=== PATIENT | female | born 1950 | race Asian ===

== ENCOUNTER 2018-01-26 23:06 | Inpatient (IN) | payer MEDICAID ==
[~2018-01-26] VITALS: Ht 162.6 cm; Wt 76.2 kg
[2018-01-26 23:06] VITALS: BP 170/89
--- NOTE | 2018-01-26 23:06 | NUR ---
67/F BIBA FROM HOME FOR SOB/DYSPNEA 30 MINS AGO. PER EMS, PT SPO2 ON SCENE WAS 80% ON RA, PT WAS GIVEN ALBUTEROL AND ATROVENT BREATHING TX, AND PLACED ON CPAP, PT'S SPO2 IMPROVED TO 96%. PT ARRIVES TO ER, RT AT BEDSIDE TO CONTINUE CPAP. SPO2 100% ON CPAP, RR 35 EVEN, SHALLOW AND SLIGHTLY LABORED. LUNG SOUNDS CLEAR BL. BS ACTIVE X4, ABD SOFT ROUND NONTENDER. AOX4, GCS 15. ER MD AT BEDSIDE TO EVALUATE PT. HX ASTHMA, HTN, DM
--- NOTE | 2018-01-26 23:07 | NUR ---
PT BIBA ALS. TAKEN TO BED 11. RT AT BEDSIDE
[2018-01-26] MEDS ORDERED: MAG SULF 2000 MG/WATER PREMIX 50 ML IV ONE (23:15)
[2018-01-26] MEDS ORDERED: ALBUTEROL 0.083% 2.5 MG/3 ML NEBU INH ONE (23:15)
[2018-01-26] MEDS ORDERED: methylPREDNISolone SS 125 MG/2 ML VIAL IVP ONE (23:15)
[2018-01-26] MEDS ORDERED: IPRATROPIUM 0.02% 0.5 MG/2.5 ML NEBU INH ONE (23:15)
--- NOTE | 2018-01-26 23:30 | NUR ---
PT'S AT BEDSIDE
[2018-01-26 23:56] LABS: BASOPHILS # (AUTO) 0.1 K/uL (0.00-0.22); BASOPHILS % (AUTO) 0.7 % (0.0-2.0); EOSINOPHILS # (AUTO) 0.6 K/uL (0-0.4); EOSINOPHILS % (AUTO) 4.6 % (0.0-4.0); HEMATOCRIT 38.7 % (36-48); HEMOGLOBIN 12.2 g/dL (12.0-16.0); LYMPHOCYTES % (AUTO) 22.5 % (20.5-51.1); MEAN CORPUSCULAR HEMOGLOBIN 30 pg (27-31); MEAN CORPUSCULAR HGB CONC 32 g/dL (33-37); MEAN CORPUSCULAR VOLUME 93.9 fL (80-94); MONOCYTES % (AUTO) 7.5 % (1.7-9.3); NEUTROPHILS # (AUTO) 8.5 K/uL (1.8-7.7); NEUTROPHILS % (AUTO) 64.7 % (42.2-75.2); PLATELET COUNT (AUTO) 257 K/uL (140-450); RED BLOOD CELL COUNT(AUTO) 4.12 MIL/uL (4.20-5.40); RED CELL DISTRIBUTION WIDTH 14.5 % (11.6-13.7); WHITE BLOOD COUNT (AUTO) 13.2 K/uL (4.8-10.8)
[2018-01-27 00:15] LABS: ANION GAP 12.4 (8-16); CARBON DIOXIDE 26.4 mmol/L (21-32); CREATININE 1.9 mg/dL (0.6-1.3); POTASSIUM 4.8 mmol/L (3.5-5.1)
[2018-01-27 00:20] LABS: ALBUMIN 2.7 g/dL (3.4-5.0); TOTAL BILIRUBIN 0.3 mg/dL (0.0-1.0)
[2018-01-27] MEDS ORDERED: AZITHROMYCIN 500 MG in DEXTROSE 5% 250 ML IV ONE (00:40)
[2018-01-27] MEDS ORDERED: cefTRIAXone 1,000 MG in DEXT 5% MINI-BAG PLUS 50 ML IV ONE (00:40)
[2018-01-27] MEDS ORDERED: cefTRIAXone 1,000 MG VIAL ONE (00:57)
[2018-01-27] MEDS ORDERED: AZITHROMYCIN 500 MG INJ VIAL IV ONE (00:58)
[2018-01-27] MEDS: NACL 0.9% 1,000 ML IV SCH (02:14)
[2018-01-27] MEDS ORDERED: ONDANSETRON 4 MG/2 ML VIAL IM/IVP PRN (02:15)
[2018-01-27] MEDS ORDERED: DOCUSATE SODIUM 100 MG GELCAP PO PRN (02:15)
--- NOTE | 2018-01-27 02:27 | NUR ---
Dr. Lowe evaluating patient at bedside.
[2018-01-27] MEDS ORDERED: ALBUTEROL SULFATE/IPRATROPIU 3 ML SOL IH PRN (02:50)
[2018-01-27 02:52] VITALS: BP 153/74
[2018-01-27] MEDS ORDERED: hePARIN / DEXT 5% PREMIX 250 ML IV SCH (02:55)
[2018-01-27] MEDS ORDERED: HEPARIN PER PHARMACY MC PRN (02:55)
--- NOTE | 2018-01-27 02:55 | NUR ---
Patient will be admitted to care of [facility]. Admitted to TELE. Will go to room 110A. Belongings list completed. Report to REED ESCALANTE.
--- NOTE | 2018-01-27 02:55 | NUR ---
Admitted from ER TO TELEMETRY UNIT , with chief complaint of SOB, CHEST PAIN , 67 y/o ,Female, Cooperative, AWAKE, A/OX4. NOTED BILATERAL WHEEZES ON LUNG AUSCULTATION. APPEARS WEAK, WITH SOB. 02 SAT - 93-94% ON 2 LITERS VIA N/C. ABLE TO AMBULATE BY HERSELF, CONTINENT. HEAD TO TOE ASSESSMENT DONE WITH MATEO GLEASON, SKIN INTACT. PLAN OF CARE FOR THE SHIFT DISCUSSED WITH ALSO, VERBALIZED UNDERSTANDING. WITH CHEST PAIN 2/, WILL MEDICATE ORDERED. REPOSITIONED IN BED FOR COMFORT. oriented to call light, bed, phone,television, bathroom, smoking policy, visiting hours, procedures, ID bracelet on. Belongings list checked.
[2018-01-27] MEDS ORDERED: NITROGLYCERIN 0.4 MG TAB SL PRN (03:00)
[2018-01-27] MEDS ORDERED: ALBUTEROL SULFATE/IPRATROPIU 3 ML SOL IH ONE (03:05)
[2018-01-27] MEDS ORDERED: MORPHINE SULFATE 4 MG/ML SYR IVP PRN ×2 (03:05→16:10)
--- NOTE | 2018-01-27 03:05 | NUR ---
RT CAME AND GIVE BREATHING TREATMENT, RELIEF NOTED. DECREASED SOB. VERBALIZED DECREASED IN PAIN IN THE CHEST.
[2018-01-27] MEDS ORDERED: FUROSEMIDE 40 MG/4 ML VIAL IVP SCH (03:30)
--- NOTE | 2018-01-27 03:30 | NUR ---
TAKEN TO RADIOLOGY VIA BED FOR CT OF HEAD.
[2018-01-27 03:35] LABS: CHOL/HDL RATIO 3.7 (1-4.5); FREE T4 (FREE THYROXINE) 1.14 ng/dL (0.76-1.46); MAGNESIUM 2.1 mg/dL (1.8-2.4); PHOSPHORUS 4.1 mg/dL (2.5-4.9); THYROID STIMULATING HORMONE 2.66 uIU/mL (0.34-3.74)
--- NOTE | 2018-01-27 04:00 | NUR ---
RESULT OF CT OF HEAD, NO INTRACRANIAL HEMORRHAGE.
[2018-01-27] MEDS ORDERED: METF1000 PO (04:19)
[2018-01-27] MEDS ORDERED: ATOR10TA51 PO (04:19)
[2018-01-27] MEDS ORDERED: GLIP5TER PO (04:19)
[2018-01-27] MEDS ORDERED: ASPI81CT89 PO (04:19)
[2018-01-27] MEDS ORDERED: AMLO10TA PO (04:19)
[2018-01-27] MEDS ORDERED: FURO-572 PO (04:19)
[2018-01-27] MEDS: hePARIN / DEXT 5% PREMIX 250 ML IV SCH ×3 (04:44→19:42)
--- NOTE | 2018-01-27 04:44 | NUR ---
HEPARIN DRIP AT 7.6 ML/HR STARTED BY MATEO GLEASON.
[2018-01-27] MEDS ORDERED: methylPREDNISolone SS 125 MG/2 ML VIAL IVP SCH (05:30)
[2018-01-27] MEDS ORDERED: METOPROLOL 25 MG TAB PO SCH ×2 (05:30→09:00)
[2018-01-27] MEDS ORDERED: PIPERACILLIN/TAZOBACTAM 3.375 GM VIAL IV ONE (05:36)
[2018-01-27] MEDS ORDERED: methylPREDNISolone SS 125 MG/2 ML VIAL ONE (05:37)
[2018-01-27] MEDS: PIPER/TAZO 3.375GM/D5W PREMIX 50 ML IV SCH ×3 (05:48→20:47)
--- NOTE | 2018-01-27 06:30 | NUR ---
RESTING COMFORTABLY IN BED, NO MORE SOB. AT THE BEDSIDE. TOLERATED ALL MEDICATIONS GIVEN. WILL ENDORSED TO AM NURSE FOR CONTINUITY OF CARE.
[2018-01-27] MEDS ORDERED: glipiZIDE ER 5 MG TABER PO SCH (07:00)
--- NOTE | 2018-01-27 07:25 | NUR ---
ENDORSED TO Deborah WHITE FOR CONTINUITY OF CARE.
--- NOTE | 2018-01-27 07:30 | NUR ---
RECEIVED PATIENT FROM LITIGATION ASSISTANT RN ON BEDSIDE. PATIENT IS ALERT AND ORIENTED ON NC 2L/MIN. NO SOB OR PAIN AT THIS TIME. PATIENT ON HEP DRIP INFUSING AT 7.6ML/HR ON R AC 18G. PATIEN IS LYING COMFORTABLY ON THE BED WITH CALL LIGHT WITHIN REACH. PATIENT'S IS BY HER BEDSIDE.
[2018-01-27 08:00] VITALS: BP 148/75
[2018-01-27 08:17] LABS: BASOPHILS % (AUTO) 0.2 % (0.0-2.0); EOSINOPHILS % (AUTO) 0.1 % (0.0-4.0); HEMATOCRIT 39.2 % (36-48); HEMOGLOBIN 12.4 g/dL (12.0-16.0); LYMPHOCYTES # (AUTO) 1.2 K/uL (2.5-16.5); LYMPHOCYTES % (AUTO) 10.3 % (20.5-51.1); MEAN CORPUSCULAR HEMOGLOBIN 30 pg (27-31); MEAN CORPUSCULAR HGB CONC 32 g/dL (33-37); MEAN CORPUSCULAR VOLUME 93.7 fL (80-94); MONOCYTES # (AUTO) 0.1 K/uL (0.8-1.0); MONOCYTES % (AUTO) 0.7 % (1.7-9.3); NEUTROPHILS # (AUTO) 10.1 K/uL (1.8-7.7); NEUTROPHILS % (AUTO) 88.7 % (42.2-75.2); PLATELET COUNT (AUTO) 255 K/uL (140-450); RED BLOOD CELL COUNT(AUTO) 4.19 MIL/uL (4.20-5.40); RED CELL DISTRIBUTION WIDTH 14.6 % (11.6-13.7); WHITE BLOOD COUNT (AUTO) 11.4 K/uL (4.8-10.8)
--- NOTE | 2018-01-27 08:19 | NUR ---
PATIENT HAS BEEN SCREENED AND CATEGORIZED HIGH NUTRITION RISK. PATIENT WILL BE SEEN WITHIN 1-2 DAYS OF ADMISSION. 01/27/18-01/28/[address]
[2018-01-27] MEDS: ALBUTEROL SULFATE/IPRATROPIU 3 ML SOL IH SCH ×3 (08:39→19:37)
[2018-01-27] MEDS ORDERED: ECOTRIN 81 MG TABEC PO SCH (09:00)
[2018-01-27] MEDS ORDERED: LISINOPRIL 5 MG TAB PO SCH (09:00)
[2018-01-27 09:09] LABS: ANION GAP 13.5 (8-16); CARBON DIOXIDE 25.6 mmol/L (21-32); CREATININE 2.1 mg/dL (0.6-1.3)
[2018-01-27 09:12] LABS: MAGNESIUM 2.4 mg/dL (1.8-2.4); PHOSPHORUS 4.8 mg/dL (2.5-4.9)
[2018-01-27 09:15] LABS: POTASSIUM 6.1 mmol/L (3.5-5.1)
[2018-01-27] MEDS: amLODIPine 5 MG TAB PO SCH (09:16)
[2018-01-27] MEDS: ASPIRIN 81 MG TAB.CHEW PO SCH (09:17)
[2018-01-27] MEDS: ATORVASTATIN 20 MG TAB PO SCH (09:17)
--- NOTE | 2018-01-27 09:24 | NUR ---
CRITICAL VALUE RECEIVED BY LAB: PTT 52.9. NO CHANGE IN HEPARIN DRIP RATE.
--- NOTE | 2018-01-27 09:46 | NUR ---
CRITICAL VALUES RECEIVED BY LAB TROPONIN 0.718 BUN [address] BURROWS
[2018-01-27 12:15] VITALS: BP 146/76
--- NOTE | 2018-01-27 12:30 | NUR ---
PATIENT IS IN COMFORTABLE CONDITION. PATIENT STATED NO PAIN OR DISTRESS AT THIS TIME. PATIENT'S AND SON ARE BY HER BEDSIDE. WILL CONTINUE TO MONITOR HER FOR PAIN
--- NOTE | 2018-01-27 15:00 | NUR ---
PATIENT IS SITTING ON THE BED AND STATED THAT SHE IS NOT IN ANY PAIN AT THIS TIME. BY HER BEDSIDE. BED IS AT THE LOWEST POSITION WITH THE CALL LIGHT WITHIN REACH.
--- NOTE | 2018-01-27 15:38 | NUR ---
PATIENT BEING EVALUATED BY DR TALLEY. FAMILY MEMBERS AT BEDSIDE
[2018-01-27] MEDS: ACETAMINOPHEN 325 MG TAB PO PRN (15:53)
[2018-01-27 16:00] VITALS: BP 132/90
[2018-01-27] MEDS ORDERED: ATORVASTATIN 20 MG TAB PO SCH (17:00)
[2018-01-27] MEDS ORDERED: GABAPENTIN 100 MG CAP PO SCH (17:00)
[2018-01-27] MEDS ORDERED: SODIUM POLYSTYRENE 15 GM/60 ML UDBTL PO SCH (17:30)
[2018-01-27] MEDS ORDERED: DEXTROSE 50% 50 ML SYR IVP SCH (18:00)
[2018-01-27] MEDS ORDERED: INSULIN REGULAR, HUMAN 100 UNIT/ML VIAL IVP SCH (18:00)
--- NOTE | 2018-01-27 18:00 | NUR ---
CRITICAL VALUE TROP 1.[address] BURROWS
--- NOTE | 2018-01-27 19:30 | NUR ---
PATIENT REPORT GIVEN AT BEDSIDE. PATIENT ENDORSED IN STABLE CONDITION
[2018-01-27 20:00] VITALS: BP 143/69
[2018-01-27] MEDS: METOPROLOL 50 MG TAB PO SCH (20:47)
--- NOTE | 2018-01-27 21:00 | NUR ---
PT SITTING ON SIDE OF BED. NO C/O ANY PAIN NOTED.
[2018-01-27 21:04] LABS: BARBITURATE, URINE NEG. ng/ml (NEG <=200); BENZODIAZEPINE, URINE NEG. ng/mL (NEG <=200); CANNABINOID, URINE NEG. ng/mL (NEG <=50); COCAINE, URINE NEG. ng/mL (NEG <=300); OPIATE, URINE NEG. ng/mL (NEG <=2000); PHENCYCLIDINE SCREEN,URINE NEG. ng/mL (NEG <=25)
[2018-01-27 21:28] LABS: APPEARANCE,URINE CLEAR (CLEAR); COLOR,URINE STRAW (YELLOW)
[2018-01-27 21:29] LABS: BILIRUBIN,URINE NEGATIVE (NEGATIVE); BLOOD, URINE NEGATIVE (NEGATIVE); LEUKOCYTE ESTERASE ,URINE NEGATIVE (NEGATIVE); NITRITE, URINE NEGATIVE (NEGATIVE); UGLUCOSE NEGATIVE (NEGATIVE)
--- NOTE | 2018-01-27 22:30 | NUR ---
PT ASLEEP. NO S/S FO ANY DISCOMFORT NOTED. WILL CONTINUE TO MONITOR.
--- NOTE | 2018-01-28 00:05 | NUR ---
AWAKE. VITAL SIGNS TAKE. STABLE. NO C/O ANY DISCOMFORT /PAIN NOTED. WILL CONTINUE TO MONITOR.
[2018-01-28 00:07] VITALS: BP 132/60
--- NOTE | 2018-01-28 01:20 | NUR ---
AWAKE. ASSISTED UP TO THE BATHROOM. VOIDED.
[2018-01-28] MEDS: ALBUTEROL SULFATE/IPRATROPIU 3 ML SOL IH SCH ×4 (01:40→18:51)
[2018-01-28] MEDS: NACL 0.9% 1,000 ML IV SCH (02:14)
[2018-01-28] MEDS: hePARIN / DEXT 5% PREMIX 250 ML IV SCH ×2 (03:13→08:42)
--- NOTE | 2018-01-28 03:13 | NUR ---
LATEST PTT RESULT 42.3. HEPARIN DRIP PROTOCOL FOLLOWED. NEXT PTT WILL BE AT 0913 THIS AM. WILL CONTINUE TO MONITOR PT.
[2018-01-28] MEDS: PIPER/TAZO 3.375GM/D5W PREMIX 50 ML IV SCH ×3 (04:29→20:13)
[2018-01-28 04:35] VITALS: BP 123/66
[2018-01-28] MEDS: HYDROcodone/APAP 7.5/325 MG 1 TAB PO PRN (04:38)
--- NOTE | 2018-01-28 04:38 | NUR ---
C.O HEADACHE. MEDICATED WITH NORCO PO. WILL CONTINUE TO MONITOR.
--- NOTE | 2018-01-28 05:38 | NUR ---
PT IS ASLEEP. NO S/S OF PAIN NOTED.
[2018-01-28] MEDS: PANTOPRAZOLE 40 MG TABEC PO SCH (05:41)
[2018-01-28 06:17] LABS: T4 (THYROXINE) 7.8 ug/dL (4.5-12.0)
[2018-01-28 07:08] LABS: HEMATOCRIT 33.1 % (36-48); HEMOGLOBIN 10.5 g/dL (12.0-16.0); LYMPHOCYTES # (AUTO) 1.4 K/uL (2.5-16.5); LYMPHOCYTES % (AUTO) 6.6 % (20.5-51.1); MEAN CORPUSCULAR HEMOGLOBIN 30 pg (27-31); MEAN CORPUSCULAR HGB CONC 32 g/dL (33-37); MONOCYTES # (AUTO) 1.1 K/uL (0.8-1.0); MONOCYTES % (AUTO) 5.1 % (1.7-9.3); NEUTROPHILS # (AUTO) 19.3 K/uL (1.8-7.7); NEUTROPHILS % (AUTO) 88.3 % (42.2-75.2); PLATELET COUNT (AUTO) 226 K/uL (140-450); RED BLOOD CELL COUNT(AUTO) 3.52 MIL/uL (4.20-5.40); RED CELL DISTRIBUTION WIDTH 14.9 % (11.6-13.7); WHITE BLOOD COUNT (AUTO) 21.9 K/uL (4.8-10.8)
--- NOTE | 2018-01-28 07:20 | NUR ---
ENDORSED PT IN STABLE CONDITION TO AM NURS FOR CONTINUITY OF CARE.
--- NOTE | 2018-01-28 07:25 | NUR ---
PT REPORT RECEIVED FROM INFORMATION SYSTEMS COORDINATOR NURSE AT BEDSIDE. PT IS AWAKE AND ALERT, AT BEDSIDE. PT IS ON 2L O2 NC. PT HAS R WRIST 22 GAUGE IV SITE, AND A R AC 18 GAUGE IV SITE. NS INFUSING AT 10 ML/HR TKO ON R AC. HEPARIN DRIPPING AT 10.2 ML/HR AT THIS TIME ON R WRIST. CONTINUING TO MONITOR PTT. SKIN INTACT. NO ACUTE DISTRESS NOTED AT THIS TIME, NO C/O CHEST PAIN OR SOB AT THIS TIME. WILL CONTINUE TO MONITOR. CALL LIGHT WITHIN REACH. FALL PRECAUTIONS IN PLACE.
[2018-01-28 07:28] LABS: ANION GAP 11.8 (8-16); CARBON DIOXIDE 27.1 mmol/L (21-32); CREATININE 2.3 mg/dL (0.6-1.3); POTASSIUM 4.9 mmol/L (3.5-5.1)
[2018-01-28 07:38] LABS: MAGNESIUM 2.3 mg/dL (1.8-2.4); PHOSPHORUS 5.4 mg/dL (2.5-4.9)
[2018-01-28] MEDS ORDERED: FUROSEMIDE 20 MG TAB PO SCH (09:00)
[2018-01-28] MEDS: ASPIRIN 81 MG TAB.CHEW PO SCH (09:33)
[2018-01-28] MEDS: ATORVASTATIN 20 MG TAB PO SCH (09:33)
[2018-01-28] MEDS: amLODIPine 5 MG TAB PO SCH (09:33)
[2018-01-28] MEDS: METOPROLOL 50 MG TAB PO SCH ×2 (09:34→20:13)
[2018-01-28] MEDS: GABAPENTIN 100 MG CAP PO SCH ×3 (09:34→17:59)
[2018-01-28 10:49] LABS: CHLORIDE,URINE RANDOM 54 mmol/L (110-250); CREATININE,URINE RANDOM 83 mg/dL (30-125); URINE SODIUM, RANDOM 33 mmol/l (40-220)
[2018-01-28 12:00] VITALS: BP 136/69
--- NOTE | 2018-01-28 13:00 | NUR ---
01/28/18 RD FOLLOW UP COMPLETED PLEASE REFER TO NUTRITION ASSESSMENT UNDER CARE ACTIVITY FOR ESTIMATED NUTRITIONAL NEEDS. CONTINUE RENAL, CARDIAC, AND CCHO 60 GM DIET TOLERATED 2. DIETITIAN PROVIDED RENAL AND DIABETIC NUTRITIONAL EDUCATION 3. RD TO FOLLOW-UP 3-5 DAYS, MODERATE RISK JERRI MENDOZA RD
--- NOTE | 2018-01-28 14:20 | NUR ---
PT ALERT AND AWAKE IN BED, NO S/S OF DISTRESS, NO C/O PAIN. PT ON 2L O2 NC. VS STABLE. AND SON AT BEDSIDE. CALL LIGHT WITHIN REACH. CONTINUING TO MONITOR.
[2018-01-28 16:00] VITALS: BP 145/69
[2018-01-28] MEDS: FUROSEMIDE 40 MG TAB PO SCH (18:00)
--- NOTE | 2018-01-28 18:50 | NUR ---
NOTIFIED OF PT'S POSITIVE MRSA NARES.
--- NOTE | 2018-01-28 19:35 | NUR ---
RECEIVED BEDSIDE REPORT FROM MATEO ORTEGA. PATIENT ON CONTACT PRECAUTIONS FOR MRSA OF NARES, ON 2 L VIA NC, AT BEDSIDE, NO SIGNS OF ACUTE DISTRESS, IV IN RIGHT WRIST 22 G INFUSING HEPARIN ACCORDING TO PROTOCOL FOR APTT OF 53.1. IV IN RIGHT AC 18 G INFUSING NS AT 10 ML/HR. BOTH DRESSINGS INTACT. NOTED EDEMA IN BOTH LOWER EXTREMITIES. V/S TAKEN ALL WITHIN BASELINE, CALL LIGHT WITHIN REACH, BED ALARM ON WILL CONTINUE TO MONITOR.
--- NOTE | 2018-01-28 19:35 | NUR ---
PT REPORT GIVEN AT BEDSIDE TO NIGHTSHIFT NURSE. PT ENDORSED IN STABLE CONDITION.
[2018-01-28 20:00] VITALS: BP 126/66
[2018-01-28 21:05] LABS: URINE PROTEIN QUANT RANDOM 148.8 mg/dL (15-45)
--- NOTE | 2018-01-28 21:14 | NUR ---
CALL FROM LAB, SPOKE WITH RAFFY, CRITICAL VALUE FOR PTT 68.2, DOCTORS AWARE, NO CHANGE IN HEPARIN PROTOCOL.
--- NOTE | 2018-01-28 22:00 | NUR ---
DUE MEDICATIONS GIVEN, PATIENT TOLERATED WELL, CALL LIGHT WITHIN REACH, WILL CONTINUE TO MONITOR.
[2018-01-29] VITALS: BP 123/61
--- NOTE | 2018-01-29 | NUR ---
V/S TAKEN ALL WITHIN BASELINE, PATIENT AMBULATED TO RESTROOM, ASSISTANCE NEEDED, HELPED BACK INTO BED.
[2018-01-29] MEDS: ALBUTEROL SULFATE/IPRATROPIU 3 ML SOL IH SCH ×4 (01:25→19:41)
--- NOTE | 2018-01-29 02:00 | NUR ---
PATIENT RESTING IN BED, ON 2 L NC, NO SIGNS OF ACUTE DISTRESS, CALL LIGHT WITHIN REACH, WILL CONTINUE TO MONITOR.
[2018-01-29] MEDS: NACL 0.9% 1,000 ML IV SCH (02:14)
[2018-01-29 04:00] VITALS: BP 130/80
--- NOTE | 2018-01-29 04:00 | NUR ---
V/S TAKEN NOTED BP 130/80 HR 78, DENIES PAIN , CALL LIGHT WITHIN REACH, WILL CONTINUE TO MONITOR.
[2018-01-29] MEDS: PIPER/TAZO 3.375GM/D5W PREMIX 50 ML IV SCH ×3 (06:19→20:54)
[2018-01-29] MEDS: PANTOPRAZOLE 40 MG TABEC PO SCH (06:19)
--- NOTE | 2018-01-29 07:10 | NUR ---
ENDORSED PATIENT TO DAY SHIFT NURSE, PATIENT STABLE.
--- NOTE | 2018-01-29 07:30 | NUR ---
RECEIVED PT'S REPORT FROM PROJECT COORDINATOR RN NURSE AT BEDSIDE. PT IS AAOX4, ON CONTACT PRECAUTIONS FOR MRSA OF NARES, ON 2 L O2 VIA NC, AT BEDSIDE, NO S/S OF ACUTE DISTRESS NOTED, IV TO RIGHT WRIST 22 G INFUSING HEPARIN AT 890 UNITS PER HR. IV TO RIGHT AC 18 G INFUSING NS AT 10 ML/HR, ASYMPTOMATIC. CALL LIGHT WITHIN REACH, BED IN LOWEST POSITION, BED ALARM ON, WILL CONTINUE TO MONITOR.
[2018-01-29 08:00] VITALS: BP 128/67
[2018-01-29] MEDS ORDERED: CALCIUM ACETATE 667 MG TAB PO SCH (08:00)
[2018-01-29] MEDS ORDERED: MUPIROCIN 2% OINT 22 GM TUBE TP SCH (09:00)
[2018-01-29] MEDS: amLODIPine 5 MG TAB PO SCH (09:00)
[2018-01-29] MEDS: ASPIRIN 81 MG TAB.CHEW PO SCH (09:01)
[2018-01-29] MEDS: FUROSEMIDE 40 MG TAB PO SCH ×2 (09:01→16:40)
[2018-01-29] MEDS: METOPROLOL 50 MG TAB PO SCH ×2 (09:01→20:55)
[2018-01-29] MEDS: ATORVASTATIN 20 MG TAB PO SCH (09:02)
[2018-01-29] MEDS: GABAPENTIN 300 MG CAP PO SCH ×3 (09:02→16:40)
[2018-01-29 09:04] LABS: BASOPHILS # (AUTO) 0.1 K/uL (0.00-0.22); BASOPHILS % (AUTO) 0.6 % (0.0-2.0); EOSINOPHILS % (AUTO) 0.1 % (0.0-4.0); HEMATOCRIT 34.1 % (36-48); HEMOGLOBIN 10.7 g/dL (12.0-16.0); LYMPHOCYTES # (AUTO) 2.5 K/uL (2.5-16.5); LYMPHOCYTES % (AUTO) 14.4 % (20.5-51.1); MEAN CORPUSCULAR HEMOGLOBIN 30 pg (27-31); MEAN CORPUSCULAR HGB CONC 31 g/dL (33-37); MEAN CORPUSCULAR VOLUME 94.5 fL (80-94); MONOCYTES # (AUTO) 1.3 K/uL (0.8-1.0); MONOCYTES % (AUTO) 7.5 % (1.7-9.3); NEUTROPHILS # (AUTO) 13.2 K/uL (1.8-7.7); NEUTROPHILS % (AUTO) 77.4 % (42.2-75.2); PLATELET COUNT (AUTO) 223 K/uL (140-450); RED BLOOD CELL COUNT(AUTO) 3.61 MIL/uL (4.20-5.40); RED CELL DISTRIBUTION WIDTH 14.8 % (11.6-13.7); WHITE BLOOD COUNT (AUTO) 17.1 K/uL (4.8-10.8)
--- NOTE | 2018-01-29 09:40 | NUR ---
PT ACCIDENTALLY PULLED OUT HER IV AT RIGHT AC. BLEEDING STOPPED, PRESSURE APPLIED. IV TIP INTACT.
--- NOTE | 2018-01-29 09:41 | NUR ---
CALLED DR TATUM, REPORTED TROP 3.054
--- NOTE | 2018-01-29 09:43 | NUR ---
PT DENIES ANY CHEST PAIN AT THIS TIME, NO S/S OF ACUTE DISTRESS ON 2L O2 NC.
--- NOTE | 2018-01-29 10:06 | NUR ---
NEW IV INSERTED, RIGHT FA, 22G. PT TOLERATED WELL.
[2018-01-29] MEDS: CHLORHEXADINE GLUC 2% CLOTH TP SCH (11:10)
--- NOTE | 2018-01-29 11:25 | NUR ---
DR HANDY HAS SEEN THE PT. CONTINUE HEPARIN DRIP PER DR HANDY.
[2018-01-29] MEDS: hePARIN / DEXT 5% PREMIX 250 ML IV SCH ×2 (11:47→22:43)
[2018-01-29 12:00] VITALS: BP 145/52
--- NOTE | 2018-01-29 15:49 | NUR ---
PT DENIES CHEST PAIN AT THIS TIME. NO S/S OF DISTRESS NOTED. ON 2 L O2 NC. HEPARIN DRIP INFUSING.
[2018-01-29 16:00] VITALS: BP 127/69
[2018-01-29 16:36] LABS: MAGNESIUM 2.2 mg/dL (1.8-2.4); PHOSPHORUS 6.1 mg/dL (2.5-4.9)
[2018-01-29 16:50] LABS: ANION GAP 15.6 (8-16); CREATININE 2.7 mg/dL (0.6-1.3); POTASSIUM 4.6 mmol/L (3.5-5.1)
--- NOTE | 2018-01-29 18:30 | NUR ---
PT C/O RIGHT AC PAINFUL BECAUSE TOO MANY BLOOD DRAWS. APPLIED LOTION AND COLD COMPRESS.
--- NOTE | 2018-01-29 19:25 | NUR ---
ENDORSED PT TO HARNESS INSPECTOR RN. PT IN STABLE CONDITION.
[2018-01-29 19:47] VITALS: BP 134/69
--- NOTE | 2018-01-29 21:40 | NUR ---
LAB CALLED FOR PTT RESULT 90. HEPARIN DRIP PUT ON HOLD FOR 1 HOUR PER PROTOCOL THEN WILL RESTART WITH DECREASE RATE OF 190 UNITS/HR.
--- NOTE | 2018-01-29 22:55 | NUR ---
PT SLEEPING WELL. NO S/S OF ANY DISCOMFORT NOR PAIN AND SOB NOTED.
[2018-01-30] MEDS: ALBUTEROL SULFATE/IPRATROPIU 3 ML SOL IH SCH ×4 (00:15→19:55)
[2018-01-30 00:20] VITALS: BP 127/64
--- NOTE | 2018-01-30 00:30 | NUR ---
PT GIVEN A BREATHING TREATMENT SCHEDULED. VITAL SIGNS STABLE.
--- NOTE | 2018-01-30 02:00 | NUR ---
ASLEEP. NO S/S OF ANY DISCOMFORT NOTED.
[2018-01-30] MEDS: NACL 0.9% 1,000 ML IV SCH (02:14)
--- NOTE | 2018-01-30 04:00 | NUR ---
UP TO BSC WITH IN ATTENDANCE. NO SOB NOTED.
[2018-01-30] MEDS: PIPER/TAZO 3.375GM/D5W PREMIX 50 ML IV SCH ×3 (04:37→20:38)
[2018-01-30 04:45] VITALS: BP 150/71
--- NOTE | 2018-01-30 04:45 | NUR ---
BLOOD WAS DRAWN FOR PTT AND OTHER LABS. WILL FOLLOW UP RESULTS.
[2018-01-30] MEDS: PANTOPRAZOLE 40 MG TABEC PO SCH (06:00)
[2018-01-30 06:54] LABS: BASOPHILS # (AUTO) 0.1 K/uL (0.00-0.22); BASOPHILS % (AUTO) 0.3 % (0.0-2.0); EOSINOPHILS # (AUTO) 0.5 K/uL (0-0.4); EOSINOPHILS % (AUTO) 3.1 % (0.0-4.0); HEMATOCRIT 35.7 % (36-48); HEMOGLOBIN 11.3 g/dL (12.0-16.0); LYMPHOCYTES # (AUTO) 4.3 K/uL (2.5-16.5); LYMPHOCYTES % (AUTO) 28.6 % (20.5-51.1); MEAN CORPUSCULAR HEMOGLOBIN 30 pg (27-31); MEAN CORPUSCULAR HGB CONC 32 g/dL (33-37); MEAN CORPUSCULAR VOLUME 94.3 fL (80-94); MONOCYTES # (AUTO) 1.5 K/uL (0.8-1.0); MONOCYTES % (AUTO) 9.8 % (1.7-9.3); NEUTROPHILS # (AUTO) 8.7 K/uL (1.8-7.7); NEUTROPHILS % (AUTO) 58.2 % (42.2-75.2); PLATELET COUNT (AUTO) 236 K/uL (140-450); RED BLOOD CELL COUNT(AUTO) 3.78 MIL/uL (4.20-5.40); RED CELL DISTRIBUTION WIDTH 14.9 % (11.6-13.7); WHITE BLOOD COUNT (AUTO) 14.9 K/uL (4.8-10.8)
[2018-01-30] MEDS: HYDROcodone/APAP 7.5/325 MG 1 TAB PO PRN (07:07)
[2018-01-30] MEDS: hePARIN / DEXT 5% PREMIX 250 ML IV SCH ×3 (07:16→22:17)
--- NOTE | 2018-01-30 07:16 | NUR ---
LATEST PTT73.3 HEPARIN DRIP PROTOCOL FOLLOWED DECREASED DRIP BY 130 UNITS/HR. NEXT PTT ORDERED.
--- NOTE | 2018-01-30 07:25 | NUR ---
ENDORSED PT IN STABLE CONDITION TO AM NURSE FOR CONTINUITY OF CARE.
--- NOTE | 2018-01-30 07:26 | NUR ---
RECEIVED BEDSIDE REPORT FROM WOOD HANDLER NURSE. PATIENT IS AWAKE, ALERT AND ORIENTEDX4. NO SIGNS OF DISTRESS ON 2L NC. BEDSIDE COMMODE AT BEDSIDE, AMBULATE W ASSIST D/T WEAKNESS. FALL RISK PROTOCOL IN PLACE. SKIN IS INTACT. IV ON R WRIST 22G INFUSING HEPARIN AT 570UNITS/HR. R FA 22G INFUSING NS AT 10 TKO. IVS ARE CLEAN, DRY AND INTACT. TELE MONITOR IN PLACE. AT BEDSIDE. WILL CONTINUE TO MONITOR THE PATIENT. BED IN LOW POSITION
[2018-01-30 07:34] LABS: MAGNESIUM 2.2 mg/dL (1.8-2.4); PHOSPHORUS 6.2 mg/dL (2.5-4.9)
[2018-01-30 08:00] VITALS: BP 122/50
[2018-01-30 08:08] LABS: ANION GAP 12.9 (8-16); CARBON DIOXIDE 30.4 mmol/L (21-32); CREATININE 2.9 mg/dL (0.6-1.3); POTASSIUM 4.3 mmol/L (3.5-5.1)
[2018-01-30] MEDS: ASPIRIN 81 MG TAB.CHEW PO SCH (09:23)
[2018-01-30] MEDS: FUROSEMIDE 40 MG TAB PO SCH ×2 (09:23→16:52)
[2018-01-30] MEDS: amLODIPine 5 MG TAB PO SCH (09:23)
[2018-01-30] MEDS: METOPROLOL 50 MG TAB PO SCH ×2 (09:24→20:39)
[2018-01-30] MEDS: GABAPENTIN 300 MG CAP PO SCH ×3 (09:24→16:52)
[2018-01-30] MEDS: ATORVASTATIN 20 MG TAB PO SCH (09:24)
[2018-01-30] MEDS: MUPIROCIN CA NASAL 2% 1GM TUBE NS SCH (09:25)
[2018-01-30] MEDS: CHLORHEXADINE GLUC 2% CLOTH TP SCH (09:25)
--- NOTE | 2018-01-30 09:30 | NUR ---
ADMINISTERED MEDS. PATIENT TOLERATED WELL. WILL CONTINUE TO MONITOR THE PATIENT. AT BEDSIDE
--- NOTE | 2018-01-30 11:03 | NUR ---
PATIENT LAYING IN BED. NO SIGNS OF DISTRESS. AT BEDSIDE. WILL CONTINUE TO MONITOR THE PATIENT
[2018-01-30 12:00] VITALS: BP 148/75
--- NOTE | 2018-01-30 13:34 | NUR ---
ADMINISTERED MEDS. PATIENT TOLERATED WELL. BED IN LOW POSITION. CALL LIGHT WITHIN REACH. PATIENT EATING LUNCH. AT BEDSIDE. WILL CONTINUE TO MONITOR
--- NOTE | 2018-01-30 14:21 | NUR ---
APTT IS 39.2. HEPARIN BOLUS OF 1,900 UNITS PER PROTOCOL. CHANGED HEPARIN DRIP TO 700 UNITS/HR. NEW APTT ORDERED AT 2020.
[2018-01-30 16:00] VITALS: BP 140/56
--- NOTE | 2018-01-30 16:54 | NUR ---
ADMINISTERED MEDS. PATIENT TOLERATED WELL. NO SIGNS OF DISTRESS. AT BEDSIDE. WILL CONTINUE TO MONITOR THE PATIENT
--- NOTE | 2018-01-30 18:00 | NUR ---
family at bedside. no signs of distress. will continue to monitor the patient
--- NOTE | 2018-01-30 19:25 | NUR ---
gave bedside report to power and recovery shift engineer nurse. patient endorsed in stable condition.
--- NOTE | 2018-01-30 19:30 | NUR ---
RECEIVED FROM AM RN IN BED SITTING UP POSITION WITH SPOUSE AND FAMILY MEMBERS AROUND. ABLE TO VERBALIZE NEEDS WELL IN MALAGASY. ON HEPARIN DRIP. IVF SITES INTACT AND NO INFILTRATION NOTED. CALL LIGHT WITH IN REACH AND CARE PLANS FOR THE NIGHT DISCUSSED WITH HER. TELEMETRY MONITORING. DX. OF RESPIRATORY PROBLEMS. NOT SOB AT THIS TIME. DENIES ANY PAIN AT THIS TIME. TELEMETRY MONITORING.
[2018-01-30] MEDS: ACETAMINOPHEN 325 MG TAB PO PRN (20:39)
[2018-01-30 20:40] VITALS: BP 150/67
--- NOTE | 2018-01-30 21:18 | NUR ---
PT. AT THIS TIME STILL AWAKE AND SPOUSE AT BEDSIDE. NO COMPLAINTS. PROVIDED WITH APPLE JUICE REQUESTED. HEADACHE BETTER PER PT. USES CALL LIGHT FOR HELP.
--- NOTE | 2018-01-30 23:17 | NUR ---
APTT 46.6 . NO HEPARIN DOSING CHANGES .
[2018-01-31 00:10] VITALS: BP 130/62
[2018-01-31] MEDS: ALBUTEROL SULFATE/IPRATROPIU 3 ML SOL IH SCH ×4 (00:50→19:01)
[2018-01-31] MEDS: NACL 0.9% 1,000 ML IV SCH (02:01)
--- NOTE | 2018-01-31 03:28 | NUR ---
PT. WILL BE DRAWN AT THIS TIME FOR PTT BY WOOD CASKET MAKER AND PER RESIDENT MD IT IS JOSE ANGEL TO INCLUDE MORNING LAB WORKS ORDERED FOR TODAY. STATE COMPTROLLER TALKED WITH RESIDENT MD OVER PHONE HEARD BY ME.
[2018-01-31 04:14] LABS: ANION GAP 8.2 (8-16); CARBON DIOXIDE 36.9 mmol/L (21-32); CREATININE 2.7 mg/dL (0.6-1.3); POTASSIUM 4.1 mmol/L (3.5-5.1)
[2018-01-31 04:15] LABS: MAGNESIUM 1.9 mg/dL (1.8-2.4); PHOSPHORUS 5.6 mg/dL (2.5-4.9)
[2018-01-31] MEDS: PIPER/TAZO 3.375GM/D5W PREMIX 50 ML IV SCH ×3 (04:54→21:17)
[2018-01-31] MEDS: hePARIN / DEXT 5% PREMIX 250 ML IV SCH ×2 (05:16→13:28)
[2018-01-31] MEDS: PANTOPRAZOLE 40 MG TABEC PO SCH (05:49)
[2018-01-31 06:00] VITALS: BP 160/80
[2018-01-31 06:27] LABS: BASOPHILS # (AUTO) 0.1 K/uL (0.00-0.22); BASOPHILS % (AUTO) 0.4 % (0.0-2.0); EOSINOPHILS # (AUTO) 0.8 K/uL (0-0.4); EOSINOPHILS % (AUTO) 5.4 % (0.0-4.0); HEMOGLOBIN 12.1 g/dL (12.0-16.0); LYMPHOCYTES # (AUTO) 3.3 K/uL (2.5-16.5); LYMPHOCYTES % (AUTO) 23.2 % (20.5-51.1); MEAN CORPUSCULAR HEMOGLOBIN 30 pg (27-31); MEAN CORPUSCULAR HGB CONC 32 g/dL (33-37); MEAN CORPUSCULAR VOLUME 93.1 fL (80-94); MONOCYTES # (AUTO) 1.4 K/uL (0.8-1.0); MONOCYTES % (AUTO) 9.7 % (1.7-9.3); NEUTROPHILS # (AUTO) 8.6 K/uL (1.8-7.7); NEUTROPHILS % (AUTO) 61.3 % (42.2-75.2); PLATELET COUNT (AUTO) 235 K/uL (140-450); RED BLOOD CELL COUNT(AUTO) 4.08 MIL/uL (4.20-5.40); RED CELL DISTRIBUTION WIDTH 14.3 % (11.6-13.7)
--- NOTE | 2018-01-31 07:19 | NUR ---
HEPARIN DRIP AT 8.3 ML. LATEST PTT WAS 41.4 . BOLUS OF 1900 UNITS HEPARIN GIVEN PROTOCOL. ISOLATION PRECAUTION OBSERVED RT MRSA NARES.
--- NOTE | 2018-01-31 07:45 | NUR ---
SCHEDULED BREATHING TREATMENT ADMINISTERED. PATIENT TOLERATED TX WELL, NO ADVERSE SIDE EFFECTS. FAMILY AT BEDSIDE. WILL CONTINUE TO MONITOR.
[2018-01-31] MEDS: GABAPENTIN 300 MG CAP PO SCH ×3 (09:10→18:07)
[2018-01-31] MEDS: METOPROLOL 50 MG TAB PO SCH ×2 (09:11→21:17)
[2018-01-31] MEDS: ASPIRIN 81 MG TAB.CHEW PO SCH (09:11)
[2018-01-31] MEDS: amLODIPine 5 MG TAB PO SCH (09:11)
[2018-01-31] MEDS: ATORVASTATIN 20 MG TAB PO SCH (09:11)
[2018-01-31] MEDS: MUPIROCIN CA NASAL 2% 1GM TUBE NS SCH (09:12)
[2018-01-31] MEDS: CHLORHEXADINE GLUC 2% CLOTH TP SCH (09:16)
--- NOTE | 2018-01-31 09:16 | NUR ---
AM MEDS GIVEN, PT KORY WELL, PT TALKING ON THE PHONE, DENIES ANY IMMEDIATE NEEDS, HEPARIN DRIP CONTINUES AT 830 UNITS/HR, NO S/S OF ACTIVE BLEEDING NOTED, AT BEDSIDE, WILL CONTINUE TO MONTIOR.
--- NOTE | 2018-01-31 10:19 | NUR ---
CALLED CASSIE AT [facility] AND SHE SAID THAT DR. Sulma HANDY HAS THE PATIENT SCHEDULED FOR CARDIAC CATH FOR ESBFRT23/12/18 FOR 3P.M. HAVE PATIENT PICKED UP AT 12 NOON. FAXED THE FACE SHEET, ORDER LABS PTINR TO HER AT [phone]. I CALLED [facility] FOR AUTH. PHONE [phone]. I SPOKE WITH SHAYLEE AND SHE SAID THE ENDLESS TRACK VEHICLE MECHANIC IS KOBY ARANGO, AND THAT SHE WOULD INFORM HER TO CALL ME. SHE COULD NOT GIVE THE PHONE NUMBER OF THE ENDLESS TRACK VEHICLE MECHANIC TO ME.
[2018-01-31 12:00] VITALS: BP 127/70
--- NOTE | 2018-01-31 13:28 | NUR ---
PTT RESULT 29, HEPARIN INCREASED TO 1080 UNITS/HR, BOLUS 3800 UNITS GIVEN PER HEPARIN DRIP ORDER. PT WITHOUT S/S OF BLEEDING, SITTING UP EATING LUNCH WITH .
--- NOTE | 2018-01-31 13:28 | NUR ---
CALLED [facility] AND SPOKE WITH LINDSAY EARLIER. SHE SAID SHE WOULD TRY AND GET A CM TO CALL ME. NO CALLED BACK YET. CALLED GAURAV AGAIN, . WAITING FOR CALL BACK.
--- NOTE | 2018-01-31 14:24 | NUR ---
SCHEDULED BREATHING TREATMENT ADMINISTERED. TOLERATED TX WELL, NO ADVERSE SIDE EFFECTS. WILL CONTINUE TO MONITOR.
--- NOTE | 2018-01-31 14:25 | NUR ---
SPOKE WITH ALBINO AT [facility]. SHE SAID THE CM IS KOBY (ELISABETH). I CALLED HER AT [phone] X [phone]. SHE SAID THIS PATIENT IS [facility], REPATRIATION. SHE SAID IT NEEDED TO GO THROUGH [facility]. SHE SAID SHE WOULD FILL OUT THE FORM TO BE SENT TO THEM. SHE NEEDED ER NOTE, H&P, XRAY, EKG , PROGRESS, CONSULT , LAB AND MAR AND ORDER FAXED TO HER AT [phone], WHICH I DID. THE MANAGER BILLING NURSE FOR [facility] FOR AFTER HOURS AND WEEKEND, CALL [phone]. Addendum: 01/31/18 at 1442 by Delores Lin DID GIVE THE PHONE NUMBER TO THE FLOOR TO ELISABETH FROM [facility].
[2018-01-31 16:00] VITALS: BP 127/72
--- NOTE | 2018-01-31 16:05 | NUR ---
VITALS TAKEN, PT SITTING UP IN CHAIR, BED LINEN CHANGED, GOWN CHANGED, PT DENIES PAIN OR DISCOMFORT, AT BEDSIDE, WILL CONTINUE TO MONITOR.
--- NOTE | 2018-01-31 16:17 | NUR ---
SPOKE WITH ELISABETH FROM [facility]. SHE SAID THAT SHE CONFIRMED THAT [facility] GOT THE PACKET AND THEY ARE WAITING CM ASSIGNMENT.
[2018-01-31] MEDS ORDERED: HEPARIN PER PHARMACY MC PRN (17:10)
--- NOTE | 2018-01-31 19:20 | NUR ---
REPORT GIVEN TO PHARMACY BENEFIT MANAGER NURSE, PT IN STABLE CONDITION, IV HEPARIN DRIP AT 1080 UNITS/HR, NO S/S OF ACTIVE BLEEDING NOTED.
--- NOTE | 2018-01-31 19:30 | NUR ---
RECEIVED REPORT FROM AM RN IN BED WITH COOLING MEASURES RT WITH TEMPERATURE. AWAKE AND ALERT. NO SOB. ON ROOM AIR WITH O2 SAT OF 94%. FAMILY MEMBERS IN HERE VISITING. CARE PLANS FOR THE NIGHT DISCUSSED WITH THEM. CALL LIGHT WITH IN REACH. LAP APPY SITE INTACT AND NO BLEEDING. TELEMETRY MONITORING IN PLACE. Addendum: 01/31/18 at 1946 by Marcia Burch RN ERROR. WRONG NOTES. 01/31/18 07:46
--- NOTE | 2018-01-31 19:46 | NUR ---
RECEIVED FROM AM RN IN BED SITTING UP. SPOUSE AT BEDSIDE. NO COMPLAINTS AT THIS TIME. TELEMETRY MONITORING. CALL LIGHT WITH IN REACH. PT. ABLE TO VERBALIZE NEEDS WELL. NO SOB AT THIS TIME. PT. ABLE TO AMBULATE WELL TO RESTROOM WITH ASSIST FROM SPOUSE. STILL ON HEPARIN DRIP.
[2018-01-31 20:06] VITALS: BP 142/79
--- NOTE | 2018-01-31 20:21 | NUR ---
HEPARIN DRIP RESULT FOR PTT AT THIS TIME IS 74.8 . DECREASED DOSING TO 9.5 ML/H PER PROTOCOL. NEXT PTT IN 6 HOURS.
[2018-02-01] VITALS (7 sets, daily range): BP systolic 121–150; BP diastolic 60–80
--- NOTE | 2018-02-01 00:03 | NUR ---
PT. AWAKE AT THIS TIME AND READY TO GO BRP FOR BOWEL MOVEMENT. ASSISTED BY SPOUSE. CALL LIGHT WITH IN REACH. TELEMETRY MONITORING.
[2018-02-01] MEDS: ALBUTEROL SULFATE/IPRATROPIU 3 ML SOL IH SCH ×4 (00:09→19:10)
--- NOTE | 2018-02-01 01:31 | NUR ---
PT. SLEEPING BACK AT THIS TIME. SPOUSE WITH HER. NO SOB. CALL LIGHT WITH IN REACH.
[2018-02-01] MEDS: NACL 0.9% 1,000 ML IV SCH (02:40)
--- NOTE | 2018-02-01 02:50 | NUR ---
PTT AT THIS TIME 55. NO CHANGE IN DOSING OF HEPARIN DRIP PER PROTOCOL.
[2018-02-01] MEDS: PIPER/TAZO 3.375GM/D5W PREMIX 50 ML IV SCH ×3 (04:42→20:48)
[2018-02-01] MEDS: hePARIN / DEXT 5% PREMIX 250 ML IV SCH (04:50)
[2018-02-01 06:37] LABS: BASOPHILS % (AUTO) 0.2 % (0.0-2.0); EOSINOPHILS # (AUTO) 0.8 K/uL (0-0.4); EOSINOPHILS % (AUTO) 5.7 % (0.0-4.0); HEMATOCRIT 37.8 % (36-48); HEMOGLOBIN 12.1 g/dL (12.0-16.0); LYMPHOCYTES # (AUTO) 2.4 K/uL (2.5-16.5); LYMPHOCYTES % (AUTO) 17.1 % (20.5-51.1); MEAN CORPUSCULAR HEMOGLOBIN 30 pg (27-31); MEAN CORPUSCULAR HGB CONC 32 g/dL (33-37); MEAN CORPUSCULAR VOLUME 92.8 fL (80-94); MONOCYTES # (AUTO) 1.4 K/uL (0.8-1.0); MONOCYTES % (AUTO) 9.6 % (1.7-9.3); NEUTROPHILS # (AUTO) 9.6 K/uL (1.8-7.7); NEUTROPHILS % (AUTO) 67.4 % (42.2-75.2); PLATELET COUNT (AUTO) 231 K/uL (140-450); RED BLOOD CELL COUNT(AUTO) 4.07 MIL/uL (4.20-5.40); RED CELL DISTRIBUTION WIDTH 14.2 % (11.6-13.7); WHITE BLOOD COUNT (AUTO) 14.2 K/uL (4.8-10.8)
[2018-02-01] MEDS: PANTOPRAZOLE 40 MG TABEC PO SCH (06:53)
[2018-02-01] MEDS: ACETAMINOPHEN 325 MG TAB PO PRN (06:53)
[2018-02-01 07:03] LABS: ANION GAP 10.3 (8-16); CARBON DIOXIDE 32.7 mmol/L (21-32); CREATININE 2.5 mg/dL (0.6-1.3)
[2018-02-01 07:18] LABS: MAGNESIUM 2.2 mg/dL (1.8-2.4); PHOSPHORUS 4.6 mg/dL (2.5-4.9)
--- NOTE | 2018-02-01 07:39 | NUR ---
SLEPT WELL THIS SHIFT. NO SOB. SPOUSE AT BEDSIDE. CALL LIGHT WITH IN REACH. ENDORSED TO THE NEXT RN FOR CONTINUITY OF CARE.
--- NOTE | 2018-02-01 07:45 | NUR ---
RECEIVED PT FROM SORTING AND FOLDING SUPERVISOR NURSEKENRICK, PT IS AWAKE AND LYING ON THE BED WITH ON THE BEDSIDE, PT HAS A HEPARIN DRIP INFUSING AT 9.5 ML.HR ON THE RT FA G.22 AND AN IV LINE ON THE RT HAND G. 22 WITH NS AT 10ML/HR INFUSING., INTACT. PT DENIES ANY PAIN AND NO SOB NOTED, WILL CONTINUE TO MONITOR PT.
--- NOTE | 2018-02-01 07:50 | NUR ---
[facility] CALLED AND REPORTED THE PT'S TROPONIN LEVEL OF 1.148, ACKNOWLEDGED AND WILL INFORM
--- NOTE | 2018-02-01 07:55 | NUR ---
INFORMED DR. TATUM OPF THE PT'S TROPONIN LEVEL OF 1.148, MD ACKNOWLEDGED AND NO CHANGE IN ORDER.
[2018-02-01] MEDS: METOPROLOL 50 MG TAB PO SCH ×2 (08:28→20:49)
[2018-02-01] MEDS: GABAPENTIN 300 MG CAP PO SCH ×3 (08:29→17:26)
[2018-02-01] MEDS: ATORVASTATIN 20 MG TAB PO SCH (08:30)
[2018-02-01] MEDS: ASPIRIN 81 MG TAB.CHEW PO SCH (08:31)
[2018-02-01] MEDS: amLODIPine 5 MG TAB PO SCH (08:31)
[2018-02-01] MEDS: MUPIROCIN CA NASAL 2% 1GM TUBE NS SCH (08:32)
[2018-02-01] MEDS: CHLORHEXADINE GLUC 2% CLOTH TP SCH (08:32)
--- NOTE | 2018-02-01 10:35 | NUR ---
BERT FROM LAB CALLED AND REPORTED THE PT'S PTT VALUE OF 54.7, NO CHANGE IS NEEDED TO BE DONE PER PROTOCOL.
--- NOTE | 2018-02-01 11:10 | NUR ---
DR. HUBBARD CAME TO THE PT'S ROOM AND SPOKE TO PT. DR. HUBBARD MADE A VERBAL ORDER TO MEASURE PT URINE OUTPUT, ACKNOWLEDGED AND WILL CARRY OUT ORDER.
--- NOTE | 2018-02-01 15:42 | NUR ---
02/01/18 RD FOLLOW UP COMPLETED PLEASE REFER TO NUTRITION PROGRESS NOTE UNDER CARE ACTIVITY FOR ESTIMATED NUTRITION NEEDS. RD RECOMMENDATIONS: 1. CONTINUE RENAL, CARDIAC, AND CCHO 60 GM DIET TOLERATED 2. RECOMMEND ADDING 1 BOTTLE OF NEPRO DAILY TO OPTIMIZE NUTRITION INTAKE. -EACH NEPRO PROVIDES 425 KCAL AND 19 GM OF PROTEIN. 3. RD TO FOLLOW-UP 3-5 DAYS, MODERATE RISK MATTHEW DAMON, RD
--- NOTE | 2018-02-01 17:40 | NUR ---
PT IS AWAKE WITH FAMILY ON THE BEDSIDE, MEDICATION GIVEN AND PT TOLERATED IT NO SIGN OF DISTRESS NOTED. WILL MONITOR PT.
--- NOTE | 2018-02-01 19:15 | NUR ---
ENDORSED PT TO RAND BUTTER NURSE, BERT FOR CONTINUITY OF CARE, PT IS STABLE AT THIS TIME.
--- NOTE | 2018-02-01 19:16 | NUR ---
RECEIVED PT IN STABLE CONDITION FOR AM NURSE. SLEEPING BUT EASILY AROUSE WHEN NAME CALLED. ON TELE -SR. WITH NO ACUTE DISTRESS NOTED. ON O22L/NC. FAMILY AT BEDSIDE. CAN BE UP TO BSC . HAS HEPARIN DRIP INFUSING WELL ON THE RT WRIST #22. AND NS @10 ML ON RT FA #22. BOTH ARE CLEAR AND PATENT. AT BEDSIDE. BED ON LOWEST POSITION. CALL LIGHT PLACED WITHIN EASY REACH. ENCOURAGED TO CALL FOR ANY ASSISTANCE. PLAN OF CARE DISCUSSED AND VERBALIZED UNDERSTANDING. WILL CONTINUE TO MONITOR.
--- NOTE | 2018-02-01 20:00 | NUR ---
PT VITAL SIGNS TAKEN. STABLE. LT ARM WITH SOME BRUISED ,SHE SAID FROM PREVIOUS BLOOD DRAWN. NOTICED ONE SKIN TEAR ON THE LT ARM. CLEANED WITH NS , PICTURE TAKEN THEN COVERED WITH TRANSPARENT DRESSING.
--- NOTE | 2018-02-01 22:00 | NUR ---
SLEEPING. WITH NO ACUTE DISTRESS NOTED. WILL CONTINUE TO MONITOR.
[2018-02-02 00:07] VITALS: BP 128/93
[2018-02-02] MEDS: ACETAMINOPHEN 325 MG TAB PO PRN ×2 (00:19→15:49)
--- NOTE | 2018-02-02 00:19 | NUR ---
TEMP 101.2 COOLING MEASURES DONE. TYLENOL 650 MG PO GIVEN. WILL CONTINUE TO MONITOR.
[2018-02-02] MEDS: ALBUTEROL SULFATE/IPRATROPIU 3 ML SOL IH SCH ×4 (01:00→19:28)
--- NOTE | 2018-02-02 01:05 | NUR ---
LATEST TEMP TAKEN 99.3
[2018-02-02] MEDS: NACL 0.9% 1,000 ML IV SCH (02:14)
--- NOTE | 2018-02-02 02:45 | NUR ---
MADE ROUNDS. PT IS SLEEPING WELL AT THIS TIME. WITH NO SOB NOR DISCOMFORT NOTED.
[2018-02-02 04:20] VITALS: BP 144/85
--- NOTE | 2018-02-02 04:20 | NUR ---
LATEST TEMP THIS AM 98.9. NO C/O ANY PAIN NOTED THIS AM.
[2018-02-02] MEDS: PIPER/TAZO 3.375GM/D5W PREMIX 50 ML IV SCH ×3 (04:35→21:19)
[2018-02-02] MEDS: PANTOPRAZOLE 40 MG TABEC PO SCH (05:29)
--- NOTE | 2018-02-02 06:30 | NUR ---
BLOOD WAS DRAWN THUS AM. WILL FOLLOW UP RESULTS.
--- NOTE | 2018-02-02 06:45 | NUR ---
TALKED TO DR. MCGINNIS RESIDENT REGARDING THE HEPARIN IF NEED TO BE DISCONTINUED DUE TO ANGIOGRAM SCHEDULED FOR TOMORROW. . SHE SAID NOT TODAY. WILL ENDORSED TO AM NURSE.
--- NOTE | 2018-02-02 07:10 | NUR ---
ENDORSED PT IN STABLE CONDITION TO AM NURSE.
--- NOTE | 2018-02-02 07:15 | NUR ---
RECEIVED PT FROM MANAGER PRINTING NURSE, BERT,PT IS AWAKE AND SEATED ON THE BED WITH ON THE BEDSIDE AND A BEDSIDE COMMODE IN PLACE, PT HAS IV LINES ON THE RT WRIST G. 22 AND RT FA G. 22 WITH HEPARIN DRIP INFUSING AT 9.5 ML/HR AND NS AT 10ML/HR, INTACT. PT VERBALIZED A PAIN ON HER LEFT FOOT, 5/10, NO SOB NOTED, BREQATHING TX WAS GIVEN BY RT. WILL CONTINUE TO MONITOR PT.
[2018-02-02 07:25] LABS: HEMATOCRIT 36.1 % (36-48); HEMOGLOBIN 11.5 g/dL (12.0-16.0); MEAN CORPUSCULAR HEMOGLOBIN 30 pg (27-31); MEAN CORPUSCULAR HGB CONC 32 g/dL (33-37); MEAN CORPUSCULAR VOLUME 93.7 fL (80-94); PLATELET COUNT (AUTO) 224 K/uL (140-450); RED BLOOD CELL COUNT(AUTO) 3.85 MIL/uL (4.20-5.40); RED CELL DISTRIBUTION WIDTH 14.2 % (11.6-13.7)
[2018-02-02 07:41] LABS: MAGNESIUM 2.1 mg/dL (1.8-2.4); PHOSPHORUS 5.1 mg/dL (2.5-4.9)
[2018-02-02 07:47] LABS: ANION GAP 7.5 (8-16); CARBON DIOXIDE 33.7 mmol/L (21-32); CREATININE 2.9 mg/dL (0.6-1.3); POTASSIUM 4.2 mmol/L (3.5-5.1)
[2018-02-02 08:00] VITALS: BP 137/73
[2018-02-02 08:17] LABS: BASOPHILS % (MANUAL) 0 % (0-2); EOSINOPHILS % (MANUAL) 6 % (0-4); LYMPHOCYTES % (MANUAL) 15 % (20-46); MONOCYTES % (MANUAL) 9 % (5-12)
[2018-02-02] MEDS: ASPIRIN 81 MG TAB.CHEW PO SCH (08:45)
[2018-02-02] MEDS: GABAPENTIN 300 MG CAP PO SCH ×3 (08:46→16:04)
[2018-02-02] MEDS: ATORVASTATIN 20 MG TAB PO SCH (08:47)
[2018-02-02] MEDS: METOPROLOL 50 MG TAB PO SCH ×2 (08:47→21:19)
[2018-02-02] MEDS: amLODIPine 5 MG TAB PO SCH (08:48)
[2018-02-02] MEDS: MUPIROCIN CA NASAL 2% 1GM TUBE NS SCH (08:49)
[2018-02-02] MEDS: CHLORHEXADINE GLUC 2% CLOTH TP SCH (08:49)
--- NOTE | 2018-02-02 09:03 | NUR ---
LAB IS DRAWING BLOOD FROM PT NOW, PT VERBALIZED SOB AND O2 WAS GIVEN VIA NC. WILL CONTINUE TO MONITOR PT.
--- NOTE | 2018-02-02 09:10 | NUR ---
CXR IS BEING DONE TO PT NOW, PT IS ON O2 2L NC, NO SIGN OF DISTRESS NOTED AND WILL CONTINUE TO MONITOR.
[2018-02-02] MEDS: hePARIN / DEXT 5% PREMIX 250 ML IV SCH (09:42)
--- NOTE | 2018-02-02 09:47 | NUR ---
A NEW BAG OF 250ML WAS HANG FOR THE PT, WITH RN, GAVIN VERIFYING WITH RNRAMÓN. WILL MONITOR PT.
--- NOTE | 2018-02-02 09:51 | NUR ---
ALEJANDRO FROM LAB CALLED AND REPORTED THE PT'S APTT LEVEL OF 51.0, ACKNOWLEDGED AND WILL CHECK HEPARIN PROTOCOL.
[2018-02-02 12:00] VITALS: BP 132/74
--- NOTE | 2018-02-02 12:22 | NUR ---
PT IS AWAKE AND HAVING HER LUNCH WITH ON THE BEDSIDE, MEDICATIONS GIVEN VIA IVPB AND ORAL AND PT TOLERATED IT. WILL CONTINUE TO MONITOR PT.
--- NOTE | 2018-02-02 15:50 | NUR ---
PT IS AWAKE AND ASKED FOR A TYLENOL FOR HER MILD PAIN, MEDICATION WAS GIVEN AND PT TOLERATDD IT. WILL CONTINUE TO MONITOR PT.
[2018-02-02 16:00] VITALS: BP 135/74
--- NOTE | 2018-02-02 18:15 | NUR ---
PT IS AWAKE AND HAVING HER DINNER WITH ON THE BEDSIDE.
--- NOTE | 2018-02-02 19:35 | NUR ---
ENDORSED PT TO MENDING CARRIER NURSETYLER FOR CONTINUITY OF CARE, PT TIS STABLE AT THIS TIME.
--- NOTE | 2018-02-02 19:35 | NUR ---
RECEIVED REPORT FROM DAY SHIFT NURSE, RAMÓN, AT PT BEDSIDE. PT IN STABLE CONDITION. PT AT BEDSIDE. PT IS AAO X4. PT IS ON RA. RESPIRATIONS EVEN AND UNLABORED. IV ACCESS IN R WRIST 22G WITH HEPARIN DRIP RUNNING AND R FA 22G SALINE LOCKED. IVS ARE PATENT AND INTACT. PT SKIN IS INTACT. PT HAS NO C/O PAIN AT THIS TIME. BED IS LOCKED, LOW POSITION, WITH SIDE RAILS UP X2. BOARD UPDATED. CALL LIGHT IS WITHIN REACH. WILL CONTINUE TO MONITOR PT.
[2018-02-02 20:00] VITALS: BP 125/67
--- NOTE | 2018-02-02 21:19 | NUR ---
ADMINISTERED SCHEDULED MEDICATIONS. PT TOLERATED WELL. NO SIGNS OR SYMPTOMS OF DISTRESS. WILL CONTINUE TO MONITOR.
--- NOTE | 2018-02-02 22:51 | NUR ---
SPOKE WITH DR MCGINNIS REGARDING DISCONTINUING HEPARIN DRIP BEFORE PT SCHEDULED ANGIOGRAM TOMORROW, 02/03, SAID SHE WILL D'C HEPARIN DRIP IN THE AM.
[2018-02-03] VITALS (7 sets, daily range): BP systolic 106–149; BP diastolic 49–76
--- NOTE | 2018-02-03 00:14 | NUR ---
PT VS ARE WITHIN NORMAL LIMITS. ASSISTED PT UP TO BEDSIDE COMMODE. PT TOLERATED WELL. NO SIGNS OR SYMPTOMS OF DISTRESS. WILL CONTINUE TO MONITOR.
[2018-02-03] MEDS: ACETAMINOPHEN 325 MG TAB PO PRN ×2 (00:32→09:21)
--- NOTE | 2018-02-03 00:32 | NUR ---
PT C/O HEADACHE, TYLENOL GIVEN. WILL CONTINUE TO MONITOR PT.
[2018-02-03] MEDS: ALBUTEROL SULFATE/IPRATROPIU 3 ML SOL IH SCH ×4 (00:46→19:09)
[2018-02-03] MEDS: NACL 0.9% 1,000 ML IV SCH (02:14)
[2018-02-03] MEDS: HYDROcodone/APAP 7.5/325 MG 1 TAB PO PRN (02:48)
--- NOTE | 2018-02-03 02:48 | NUR ---
PT C/O PAIN, NORCO GIVEN. PT TOLERATED WELL. VS ARE WITHIN NORMAL LIMITS. WILL CONTINUE TO MONITOR.
--- NOTE | 2018-02-03 03:48 | NUR ---
PT SLEEPING COMFORTABLY IN BED. NO SIGNS OR SYMPTOMS OF DISTRESS. WILL CONTINUE TO MONITOR.
[2018-02-03] MEDS: PANTOPRAZOLE 40 MG TABEC PO SCH (05:34)
[2018-02-03] MEDS: PIPER/TAZO 3.375GM/D5W PREMIX 50 ML IV SCH ×3 (05:34→20:26)
--- NOTE | 2018-02-03 05:34 | NUR ---
ADMINISTERED SCHEDULED MEDICATIONS. PT TOLERATED WELL. NO SIGNS OR SYMPTOMS OF DISTRESS. WILL CONTINUE TO MONITOR.
[2018-02-03 06:58] LABS: BASOPHILS # (AUTO) 0.1 K/uL (0.00-0.22); BASOPHILS % (AUTO) 0.6 % (0.0-2.0); EOSINOPHILS # (AUTO) 0.9 K/uL (0-0.4); EOSINOPHILS % (AUTO) 5.7 % (0.0-4.0); HEMATOCRIT 34.2 % (36-48); LYMPHOCYTES # (AUTO) 3.1 K/uL (2.5-16.5); LYMPHOCYTES % (AUTO) 19.6 % (20.5-51.1); MEAN CORPUSCULAR HEMOGLOBIN 30 pg (27-31); MEAN CORPUSCULAR HGB CONC 32 g/dL (33-37); MEAN CORPUSCULAR VOLUME 93.8 fL (80-94); MONOCYTES # (AUTO) 1.6 K/uL (0.8-1.0); MONOCYTES % (AUTO) 10.2 % (1.7-9.3); NEUTROPHILS % (AUTO) 63.9 % (42.2-75.2); PLATELET COUNT (AUTO) 236 K/uL (140-450); RED BLOOD CELL COUNT(AUTO) 3.64 MIL/uL (4.20-5.40); RED CELL DISTRIBUTION WIDTH 14.3 % (11.6-13.7); WHITE BLOOD COUNT (AUTO) 15.6 K/uL (4.8-10.8)
--- NOTE | 2018-02-03 07:24 | NUR ---
ENDORSED PLAN OF CARE TO DAY SHIFT NURSE FOR CONTINUITY OF CARE. PT IN STABLE CONDITION.
--- NOTE | 2018-02-03 07:30 | NUR ---
RECEIVED PT AAOX4. NO SOB NOTED. NO C/O PAIN AT THIS TIME. 2 IV'S TO RT HAND PATENT AND INTACT, HEPARIN DRIP INFUSING AT 9.5 MLS/HR. CHEST, DIMINISHED AIR ENTRY TO THE BASES, OTHERWISE CLEAR. ABDOMEN SOFT, BOWEL SOUNDS PRESENT. 2+, NON-PITTING EDEMA NOTED ON BLE. INSTRUCTED PT TO ELEVATE BLE WITH PILLOWS WHILE ON BED. INSTRUCTED PT TO CALL FOR ASSISTANCE, CALL LIGHT WITHIN REACH, PT VERBALIZED UNDERSTANDING.
[2018-02-03 07:33] LABS: ANION GAP 9.3 (8-16); CARBON DIOXIDE 31.3 mmol/L (21-32); CREATININE 3.2 mg/dL (0.6-1.3); POTASSIUM 4.6 mmol/L (3.5-5.1)
[2018-02-03 08:08] LABS: MAGNESIUM 2.4 mg/dL (1.8-2.4)
--- NOTE | 2018-02-03 08:27 | NUR ---
CALLED [facility] AND SPOKE WITH BARB BARBER [phone]. SHE SAID THAT THE AUTH NEEDS TO COME FROM [facility] AND TO CALL [phone] OP1 OP5. I CALLED AND SPOKE WITH GAYATRI AND SHE SAID THAT THE OFFICE IS CLOSED BECAUSE OF THE BRENDA, BUT I NEEDED TO CALL [facility].. I CALLED [facility] AND SPOKE WITH ELISABETH. SHE SAID THIS PATIENT IS REPATRIATION FOR [facility] AND THERE IS NOTHING SHE CAN DO. SHE SAID THIS PATIENT IS CAPITATED TO [facility]. I CALL [facility] AGAIN AND SPOKE WITH CHASE AND SHE SAID THAT [facility] IS CLOSED AND NO ONE PROMOTIONS TEAM LEADER. ELISABETH FROM [facility] SAID THAT ON SATURDAY IS FAXED INFORMATION TO [facility] AND WAS GIVEN THE CONFIRMATION THEY RECEIVED THE INFORMATION AND THAT AUTH WAS PENDING CM REVIEW AT [facility]
[2018-02-03] MEDS: amLODIPine 5 MG TAB PO SCH (09:21)
[2018-02-03] MEDS: METOPROLOL 50 MG TAB PO SCH ×2 (09:22→20:26)
[2018-02-03] MEDS: ATORVASTATIN 20 MG TAB PO SCH (09:22)
--- NOTE | 2018-02-03 09:22 | NUR ---
I CALLED ALBINO AT [facility], . SHE SAID SHE WOULD TRY TO GET IN TOUCH WITH HER MANAGER ACADEMIC AND SEE IF ANYTHING COULD BE DONE TO GET THE AUTH.
[2018-02-03] MEDS: GABAPENTIN 300 MG CAP PO SCH ×3 (09:23→16:38)
[2018-02-03] MEDS: ASPIRIN 81 MG TAB.CHEW PO SCH (09:23)
--- NOTE | 2018-02-03 09:45 | NUR ---
CALLED ALBINO AT [facility], AND SHE SAID SHE WOULD SPEAK WITH HER BULK TANK DRIVER TO SEE IF WE COULD GET HELP WITH GETTING THE AUTH FOR THIS PATIENT.
--- NOTE | 2018-02-03 10:24 | NUR ---
SPOKE WITH ELISABETH FROM [facility]. SHE SAID SHE IS GOING TO TALK WITH THEIR ENVIRONMENTAL CONTROL ADMINISTRATOR TO SEE IF WE CAN GET THE AUTH FOR [facility]. SHE ASKED MED TO FAX THE LATEST PROGRESS NOTES, DR. HANDY'S CONSULT AND THE MAR TO HER WHICH I DID.
--- NOTE | 2018-02-03 10:28 | NUR ---
I CALLED [facility] TO SET UP ALS TRANSPORT FOR NOON. I SPOKE WITH CYRUS. I TOLD CYRUS I AM TRYING TO GET THE AUTH FROM [facility].
--- NOTE | 2018-02-03 11:41 | NUR ---
I CALLED ELISABETH FROM [facility]. SHE SAID SHE IS STILL SPEAKING WITH HER TRIMMER AND BORER MACHINE OPERATOR. I CALLED [facility] AND SPOKE WITH SANDEE AND CHANGED THE CONFIGURATION MANAGEMENT ARCHITECT TIME TO 12:20P.M. DID SPEAK WITH DR. Sulma LEDBETTER AND TOLD HIM I WAS STILL TRYING TO GET AUTH FOR [facility] FOR THE CARDIAC CATH.
[2018-02-03] MEDS: NACL 0.9% 500 ML IV SCH ×2 (12:12→20:26)
--- NOTE | 2018-02-03 12:24 | NUR ---
RECEIVED A CALL FROM SANDIP FROM [facility]. HE HANDLES EMERGENT HIGHER LEVELE OF CARE. I ASKED IF THIS CARDIAC CATH WAS EMERGENT. I GAVE HIM THE PHONE NUMBER TO DR. HANDY. SANDIP CALLED BACK AND SAID THAT ACCORDING TO DR. HANDY THIS CARDIAC CATH WAS NO EMERGENT, SO THE AUTH HAS TO COME FROM [facility] MANAGED CARE SERVICES WHICH WILL BE OPEN TOMORROR. PHONE [phone] OP1 OP5. I CALLED [facility] AND PUT THE SCOOP DRIVER FOR TOMORROW ON WILL CALL. I SPOKE WITH DR. HANDY AND HE WILL SCHEDULE THE CARDIAC CATH FOR TOMORROW AT [facility]. HE SAID HE SPOKE WITH SANDIP AT [facility]. I CALLED [facility] MATERIAL ANALYST AND SPOKE WITH NEENA AND SHE SAID THEY HAVE SCHEDULED THE PATIENT FOR TOMORROW AT 2P.M. I CALLED KRISTOPHER GALINDO AND INFORMED HER THAT THE CARDIAC CATH WILL BE TOMORR. SANDIP AT [facility], SAID I STILL NEED TO GET AUTH TOMORROW FROM [facility], MANAGED CARE SERVICES.
[2018-02-03] MEDS: hePARIN / DEXT 5% PREMIX 250 ML IV SCH (13:07)
--- NOTE | 2018-02-03 19:15 | NUR ---
PT AWAKE, NO SOB NOTED. NO C/O PAIN AT THIS TIME. PT TALKING TO FAMILY AT THE BEDSIDE. WILL ENDORSE TO NEXT SHIFT NURSE FOR CONTINUITY OF CARE.
--- NOTE | 2018-02-03 19:22 | NUR ---
RECEIVED REPORT FROM AM RN IN BED SLEEPING. SPOUSE AT BEDSIDE. WAKES UP EASILY WHEN TOUCHED. ON ISOLATION PRECAUTION RT MRSA NARES. TELEMETRY MONITORING. CARE PLANS FOR THE NIGHT DISCUSSED WITH THEM AND CALL LIGHT WITH IN REACH. STILL ON HEPARIN DRIP AT 9.5 ML. IVF SITE INTACT AND NO INFILTRATION.
--- NOTE | 2018-02-03 20:31 | NUR ---
PT. SEATED IN BEDSIDE COMMODE. ASSISTED BY SPOUSE. ABLE TO VERBALIZE NEEDS WELL. NO SOB. ON 02 AT 2LPM/NC AT THIS TIME . ENCOURAGED TO TURN TO OTHER SIDE RT PT. ALWAYS ON LEFT SIDE.
--- NOTE | 2018-02-03 20:53 | NUR ---
PT. COMPLAINED OF HEAVINESS IN THE CHEST AND PAIN. MEDICATED WITH MORPHINE IVP ORDERED. SPOUSE AT BEDSIDE. WILL MONITOR. PT. IN BED AND TRYING TO SLEEP BACK. TELEMETRY MONITORING.
--- NOTE | 2018-02-03 21:38 | NUR ---
PT. SLEEPING AT THIS TIME. WAKES UP EASILY WHEN ASKED IF STILL IN PAIN. "BETTER" SPOUSE AT BEDSIDE 15/10.
--- NOTE | 2018-02-04 00:32 | NUR ---
WAKES UP EASILY WHEN TOUCHED. SPOUSE AT BEDSIDE. NO COMPLAINTS DONE AT THIS TIME. ON 02 AT 2LPM/NC. TELEMETRY MONITORING.
[2018-02-04 00:33] VITALS: BP 132/68
[2018-02-04] MEDS: ALBUTEROL SULFATE/IPRATROPIU 3 ML SOL IH SCH ×2 (01:23→06:33)
[2018-02-04] MEDS: PIPER/TAZO 3.375GM/D5W PREMIX 50 ML IV SCH (04:53)
[2018-02-04 05:00] VITALS: BP 118/66
[2018-02-04] MEDS: PANTOPRAZOLE 40 MG TABEC PO SCH ×2 (05:58→06:07)
--- NOTE | 2018-02-04 05:59 | NUR ---
AM MEDICATION NOT GIVEN RT FOR TRANSFER TO [facility] THIS AM FOR ANGIOCATH PROCEDURE PER AM RN AND PT. SPOUSE.
--- NOTE | 2018-02-04 06:04 | NUR ---
TALKED WITH PT. AND ASKED HER AGAIN IF SHE WANTS PROTONIX P.O. "OK" RE-CONFIRMED FROM HER AND SINCE PT CAN STILL EAT BREAKFAST SHE MIGHT WELL TAKE IT. PT. AGREED.
[2018-02-04 07:14] LABS: BASOPHILS # (AUTO) 0.1 K/uL (0.00-0.22); BASOPHILS % (AUTO) 0.6 % (0.0-2.0); EOSINOPHILS # (AUTO) 0.8 K/uL (0-0.4); EOSINOPHILS % (AUTO) 5.9 % (0.0-4.0); HEMOGLOBIN 10.3 g/dL (12.0-16.0); LYMPHOCYTES # (AUTO) 2.7 K/uL (2.5-16.5); LYMPHOCYTES % (AUTO) 20.1 % (20.5-51.1); MEAN CORPUSCULAR HEMOGLOBIN 30 pg (27-31); MEAN CORPUSCULAR HGB CONC 32 g/dL (33-37); MEAN CORPUSCULAR VOLUME 93.3 fL (80-94); MONOCYTES # (AUTO) 1.4 K/uL (0.8-1.0); MONOCYTES % (AUTO) 10.8 % (1.7-9.3); NEUTROPHILS # (AUTO) 8.4 K/uL (1.8-7.7); NEUTROPHILS % (AUTO) 62.6 % (42.2-75.2); PLATELET COUNT (AUTO) 240 K/uL (140-450); RED BLOOD CELL COUNT(AUTO) 3.43 MIL/uL (4.20-5.40); RED CELL DISTRIBUTION WIDTH 14.2 % (11.6-13.7); WHITE BLOOD COUNT (AUTO) 13.4 K/uL (4.8-10.8)
--- NOTE | 2018-02-04 07:23 | NUR ---
ENDORSED TO THE NEXT RN FOR CONTINUITY OF CARE. AWAKE AND ALERT. NO SOB. DENIES PAIN AT THIS TIME. NPO AFTER BREAKFAST. PT. AWARE OF IT AND SO IS SPOUSE. ON TELEMETRY MONITORING. UA SENT TO LAB.
--- NOTE | 2018-02-04 07:30 | NUR ---
RECEIVED PT AAOX4. NO SOB NOTED. NO C/O PAIN AT THIS TIME. 2 IV'S TO RT HAND PATENT AND INTACT, HEPARIN DRIP INFUSING AT 9.5 MLS/HR. CHEST, DIMINISHED AIR ENTRY TO THE BASES, OTHERWISE CLEAR. ABDOMEN SOFT, BOWEL SOUNDS PRESENT. 1+, NON-PITTING EDEMA NOTED ON BLE. INSTRUCTED PT TO ELEVATE BLE WITH PILLOWS WHILE ON BED. NPO FOR PLANNED PROCEDURE AT [facility]. INSTRUCTED PT TO CALL FOR ASSISTANCE, CALL LIGHT WITHIN REACH. PT VERBALIZED UNDERSTANDING FOR ALL THE TEACHINGS AND INSTRUCTIONS..
[2018-02-04 07:49] LABS: ANION GAP 10.4 (8-16); CARBON DIOXIDE 30.6 mmol/L (21-32); CREATININE 3.1 mg/dL (0.6-1.3)
[2018-02-04 07:55] LABS: MAGNESIUM 2.3 mg/dL (1.8-2.4); PHOSPHORUS 4.7 mg/dL (2.5-4.9)
[2018-02-04 08:00] VITALS: BP 126/66
--- NOTE | 2018-02-04 08:49 | NUR ---
CALLED EARLIER AND SPOKE WITH [facility] AND WAS TOLD THEY WOULD HAVE SOMEONE CALL ME BACK. NO CALL BACK SO I CALLED [facility] [phone] OP1 OP5 AND WAS ABLE TO SPEAK TO THE DEPARTMENT, SEVERO. SHE SAID THAT THEY ARE IN THE PROCESS OF ASSIGNING THIS CASE AND SHOULD HEAR FROM SOMEONE WITHIN THE HOUR. I TOLD HER THAT THIS WAS URGENT.
[2018-02-04] MEDS: NACL 0.9% 500 ML IV SCH (09:01)
[2018-02-04] MEDS: METOPROLOL 50 MG TAB PO SCH (09:02)
[2018-02-04] MEDS: ATORVASTATIN 20 MG TAB PO SCH (09:02)
[2018-02-04] MEDS: GABAPENTIN 300 MG CAP PO SCH (09:03)
[2018-02-04] MEDS: amLODIPine 5 MG TAB PO SCH (09:03)
[2018-02-04] MEDS: ACETAMINOPHEN 325 MG TAB PO PRN (09:03)
[2018-02-04] MEDS: ASPIRIN 81 MG TAB.CHEW PO SCH (09:03)
[2018-02-04 09:22] LABS: APPEARANCE,URINE CLEAR (CLEAR); BILIRUBIN,URINE NEGATIVE (NEGATIVE); BLOOD, URINE NEGATIVE (NEGATIVE); COLOR,URINE YELLOW (YELLOW); LEUKOCYTE ESTERASE ,URINE NEGATIVE (NEGATIVE); NITRITE, URINE NEGATIVE (NEGATIVE); PH,URINE 6.5 (5.0-9.0); UGLUCOSE NEGATIVE (NEGATIVE)
[2018-02-04 09:23] LABS: RBC,URINE 0-5 (RARE) /HPF (0-5); WBC,URINE 0-5 (RARE) /HPF (0-5)
--- NOTE | 2018-02-04 10:16 | NUR ---
SPOKE WITH BARB BATRES FROM [facility], . HE SAID THAT HE IS SUPPOSE TO GET THE PATIENT BACK INTO NETWORK, EITHER [facility] OR [facility]. HE CANNOT GIVE AUTH FOR [facility], THAT COMES FROM [facility]. HE SAID THAT HE WILL CONTACT THE HOSPITALS AND TRY AND GET A BED. IF NO BEDS AVAILABLE, HE WILL CALL ELISABETH AT [facility] AND SHE WOULD TRY AND GET THE AUTH FOR [facility]. TRACKING NUMBER FROM [facility] [id number].
--- NOTE | 2018-02-04 10:59 | NUR ---
RECEIVED A CALL FROM MEDARDO FROM [facility]. HE SAID NO BEDS AT [facility] OR [facility]. PATIENT ON LIST. HE SAID HE SPOKE WITH ELISABETH FROM [facility] AND SHE WILL SPEAK WITH HER TESTER SOUND. I CALLED DR. Sulma HANDY AND INFORMED HIM.
[2018-02-04] MEDS: hePARIN / DEXT 5% PREMIX 250 ML IV SCH (11:19)
--- NOTE | 2018-02-04 11:41 | NUR ---
RECEIVED A CALL FROM ELISABETH FROM [facility]. THE PATIENT CAN GO TO [facility] FOR CARDIAC CATH. THE AUTH IS [id number]. I CALLED NEENA AT [facility] ENVIRONMENTAL FIELD SERVICES TECHNICIAN AND INFORMED HER. PER ELISABETH, I CALLED [facility] AND THEY SAID FOR AMBULANCE TRANSPORT THEY HAVE A 2-4HOUR WINDOW. ELISABETH AT [facility] AWARE. CAN USE [facility]. I CALLED [facility] AND SET UP TRANSPORT FOR NOW, THEY SAID 90 MINUTE WINDOW. I CALLED DR. Sulma HANDY AND INFORMED HIM. I CALLED NEENA AT ENVIRONMENTAL FIELD SERVICES TECHNICIAN AT [facility] AND INFORMED HER OF THE PICKUP LESLIE. I CALLED KINGSLEY GALINDOROLLER BEARING INSPECTOR NURSE AND INFORMED HER. I CALLED KRISTOPHER GALINDO AND INFORMED HER AND GAVE HER THE PHONE NUMBER TO THE ENVIRONMENTAL FIELD SERVICES TECHNICIAN FOR HER TO CALL REPORT. Addendum: 02/04/18 at 1217 by Delores Lin CM I CALLED [facility] AND SPOKE WITH [place]. SHE SAID THEY HAVE A 2-4HOUR WINDOW FOR TRANSPORT.
[2018-02-04 12:00] VITALS: BP 101/53
--- NOTE | 2018-02-04 12:00 | NUR ---
REPORT GIVEN TO MONICA GALINDO IN [facility] CARE COORDINATOR.
--- NOTE | 2018-02-04 13:00 | NUR ---
DISCHARGE INSTRUCTIONS GIVEN TO PT AND FAMILY WHICH VERBALIZED FULL UNDERSTANDING OF THE TRANSFER TO [facility] FOR ANGIOGRAM. DISCHARGE PHOTO TAKEN ON LEFT FOREARM SKIN TEAR. IV ON RT HAND AND RT WRIST SALINE LOCK.
--- NOTE | 2018-02-04 13:07 | NUR ---
PT IS TRANSFERRED TO THE MEDICAL CENTER IN STABLE CONDITION VIA [facility]. NO C/O PAIN AT THIS TIME.
== END 2018-02-04 13:07 | disposition short-term general hospital (02) | DRG 720 ==
LOC: MED 23:06 → MTU 01-27 02:21
PROVIDERS: ADMIT General Practice; ATTEND General Practice
DX: A41.9 Sepsis, unspecified organism (principal); I21.A1 Myocardial infarction type 2; N17.0 Acute kidney failure with tubular necrosis; E43 Unspecified severe protein-calorie malnutrition; J69.0 Pneumonitis due to inhalation of food and vomit; I50.43 Acute on chronic combined systolic (congestive) and diastolic (congestive) heart failure; E11.22 Type 2 diabetes mellitus with diabetic chronic kidney disease; I13.0 Hypertensive heart and chronic kidney disease with heart failure and stage 1 through stage 4 chronic kidney disease, or unspecified chronic kidney disease; E87.5 Hyperkalemia; E83.39 Other disorders of phosphorus metabolism; D63.8 Anemia in other chronic diseases classified elsewhere; J45.909 Unspecified asthma, uncomplicated; E78.5 Hyperlipidemia, unspecified; M94.0 Chondrocostal junction syndrome [Tietze]; K21.9 Gastro-esophageal reflux disease without esophagitis; N18.9 Chronic kidney disease, unspecified; Z68.29 Body mass index [BMI] 29.0-29.9, adult; Z79.82 Long term (current) use of aspirin; Z79.84 Long term (current) use of oral hypoglycemic drugs; Z86.73 Personal history of transient ischemic attack (TIA), and cerebral infarction without residual deficits; Z79.899 Other long term (current) drug therapy; Z83.3 Family history of diabetes mellitus; Z82.49 Family history of ischemic heart disease and other diseases of the circulatory system; Z82.5 Family history of asthma and other chronic lower respiratory diseases
CPT/HCPCS: 36415; 36600; 70450; 71045; 76770; 80048; 80053; 80305; 81001; 81003; 82150; 82436; 82570; 82803; 82948; 83036; 83605; 83690; 83735; 83880; 84100; 84157; 84300; 84436; 84439; 84443; 84479; 84484; 85025; 85610; 85730; 87040; 87081; 87205; 93005; 93880; 94640; 96366; 96367; 99285; J0456; J0696; J1644; J1815; J1940; J2270; J2543; J2930; J3475; J7030; J7060; J7613; J7620; J7644; Q0092